=== PATIENT | male | born 1985 | race Caucasian/White ===

== ENCOUNTER → 2019-01-18 | Emergency (ER) | payer OTHER ==
--- NOTE | 2019-01-18 05:54 | NUR ---
REFER TO DOWNTIME PAPERWORK. PATIENT DISCHARGED.
== END | disposition home or self-care (01) ==
LOC: ER 01:58
DX: S62.607A Fracture of unspecified phalanx of left little finger, initial encounter for closed fracture (principal); W18.39XA Other fall on same level, initial encounter; Y93.01 Activity, walking, marching and hiking; Y92.89 Other specified places as the place of occurrence of the external cause; Y99.8 Other external cause status
CPT/HCPCS: 73130; 99283; J7030

== ENCOUNTER 2022-05-29 00:39 | Emergency (ER) | payer MEDICAID, OTHER ==
[~2022-05-29] VITALS: Ht 180.3 cm; Wt 56.7 kg
[2022-05-29] MEDS ORDERED: IBUP-1957 PO (01:42)
[2022-05-29 01:47] VITALS: BP 124/64
[2022-05-29] MEDS ORDERED: IBUPROFEN 400 MG TABLET ONE (01:53)
[2022-05-29] MEDS ORDERED: IBUPROFEN 400 MG TABLET PO ONE (02:00)
== END 2022-05-29 02:26 | disposition home or self-care (01) ==
LOC: ER 00:41
DX: S62.635A Displaced fracture of distal phalanx of left ring finger, initial encounter for closed fracture (principal); Z79.899 Other long term (current) drug therapy; W01.0XXA Fall on same level from slipping, tripping and stumbling without subsequent striking against object, initial encounter; Y93.89 Activity, other specified; Y92.89 Other specified places as the place of occurrence of the external cause; Y99.8 Other external cause status
CPT/HCPCS: 73140-TC

== ENCOUNTER 2022-05-30 05:30 | Emergency (ER) | payer MEDICAID, OTHER ==
[~2022-05-30] VITALS: Ht 180.3 cm; Wt 56.7 kg
[~2022-05-30 05:30] MED LIST: IBUP-1957 PO
[2022-05-30] MEDS ORDERED: IBUPROFEN 600 MG TABLET PO ONE (07:00)
--- NOTE | 2022-05-30 07:15 | NUR ---
RECEIVED PT FROM [facility] PT AWAKE AND ALERT WATING FOR X RAY TO BE DONE
--- NOTE | 2022-05-30 08:35 | NUR ---
X RAY DONE AT BED SIDE
--- NOTE | 2022-05-30 09:00 | NUR ---
Patient discharged to home in stable condition. Written and verbal after care instructions given. Patient verbalizes understanding of instruction.
--- NOTE | 2022-05-30 09:20 | NUR ---
CD GIVEN TO PT FULL AND VERBLIZED UNDERSTOOD D/C HOME WITH CD X RAY
[2022-05-30 09:21] VITALS: BP 125/70
== END 2022-05-30 09:23 | disposition home or self-care (01) ==
LOC: ER 05:38
DX: S62.605A Fracture of unspecified phalanx of left ring finger, initial encounter for closed fracture (principal); M25.522 Pain in left elbow; W01.0XXA Fall on same level from slipping, tripping and stumbling without subsequent striking against object, initial encounter; Y93.89 Activity, other specified; Y92.89 Other specified places as the place of occurrence of the external cause; Y99.8 Other external cause status
CPT/HCPCS: 73080-TC